=== PATIENT | female | born 1990 | race Caucasian/White ===

== ENCOUNTER 2018-10-19 05:01 | Inpatient (IN) | payer MEDICAID, OTHER ==
[~2018-10-19] VITALS: Ht 157.5 cm; Wt 56.7 kg
[2018-10-19] MEDS ORDERED: SODIUM CHLORIDE 0.9% 1,000 ML IV SCH ×2 (05:39→18:30)
[2018-10-19] MEDS ORDERED: FAMOTIDINE 20MG/2ML VIAL IV ONE (05:45)
[2018-10-19] MEDS ORDERED: DIPHENHYDRAMINE 50MG/ML VIAL IV ONE (05:45)
[2018-10-19] MEDS ORDERED: ONDANSETRON HCL 4MG/2ML INJ IV ONE (05:45)
[2018-10-19] MEDS ORDERED: DEXAMETHASONE 10 MG/ML VIAL IV ONE (05:45)
[2018-10-19 05:57] LABS: BASOPHILS % 0.1 % (0.0-2.0); EOSINOPHILS % 0.6 % (0.0-5.0); HEMATOCRIT. 48.2 % (36.0-48.0); HEMOGLOBIN. 16.2 g/dL (12.0-16.0); LYMPHOCYTES % 28.6 % (20.0-50.0); MEAN CORPUSCULAR HEMOGLOBIN 31.5 pg (28.0-32.0); MEAN CORPUSCULAR VOLUME 93.7 fL (81.0-99.0); MEAN PLATELET VOLUME 8.4 fl (7.4-10.4); NEUTROPHILS % 65.7 % (40.0-76.0); PLATELET 398 x1000/uL (130-400); RED BLOOD CELL COUNT 5.15 mill/uL (4.2-5.4); RED CELL DISTRIBUTION WIDTH 13.7 % (11.6-14.6)
[2018-10-19 06:12] LABS: CHLORIDE 106 mEq/L (98-107)
[2018-10-19] MEDS ORDERED: EPINEPHRINE 1:1000 1 MG/ML AMP INJ ONE (06:15)
[2018-10-19] MEDS ORDERED: EPINEPHRINE 1:1000 1 MG/ML AMP ONE (06:16)
[2018-10-19 07:31] LABS: HCG SCREEN NEGATIVE
[2018-10-19 08:00] VITALS: BP 92/56
[2018-10-19] MEDS ORDERED: SODIUM CHLORIDE 0.9% 1,000 ML IV ONE (08:21)
[2018-10-19] MEDS ORDERED: ACETAMINOPHEN 650MG SUPP PR PRN (08:30)
[2018-10-19] MEDS ORDERED: ONDANSETRON HCL 4MG/2ML INJ IV PRN (08:30)
[2018-10-19] MEDS ORDERED: CLONIDINE 0.1MG TABLET PO PRN (08:30)
[2018-10-19] MEDS ORDERED: IPRATROPIUM/ALBUTEROL 0.5-3(2.5)MG/3ML NEB INH PRN (08:30)
[2018-10-19] MEDS ORDERED: DOCUSATE SODIUM 100MG CAPSULE PO PRN (08:30)
[2018-10-19] MEDS ORDERED: GUAIFENESIN 200MG/10ML SUGAR FREE UDC PO PRN (08:30)
[2018-10-19] MEDS ORDERED: ACETAMINOPHEN 325MG TABLET PO PRN (08:30)
[2018-10-19] MEDS ORDERED: MAGNESIUM/ALUMINUM HYDROXIDE/SIMETHICONE 30ML UDC PO PRN (08:30)
[2018-10-19 09:00] VITALS: BP 92/50
[2018-10-19] MEDS: METHYLPREDNISOLONE SOD SUCC 125 MG/2 ML VIAL IV SCH ×3 (10:46→20:20)
[2018-10-19] MEDS: ENOXAPARIN 40MG/0.4ML SYR SUBCUT SCH (10:46)
[2018-10-19 12:00] VITALS: BP 106/48
[2018-10-19] MEDS: SODIUM CHLORIDE 0.9% INJ 3ML FLUSH IVF SCH ×2 (14:16→21:21)
[2018-10-19 16:00] VITALS: BP 92/56
[2018-10-19] MEDS: DIPHENHYDRAMINE 25MG CAPSULE PO SCH ×2 (17:51→23:31)
[2018-10-19 20:00] VITALS: BP 88/46
[2018-10-19] MEDS: SODIUM CHLORIDE 0.9% 1,000 ML IV SCH (20:00)
[2018-10-19] MEDS: FAMOTIDINE 20MG TABLET PO SCH (20:25)
[2018-10-19 20:55] LABS: CLARITY URINE CLOUDY (CLEAR); COLOR URINE YELLOW (YELLOW); KETONES URINE 1+ (NEGATIVE); LEUKOCYTE ESTERASE URINE NEGATIVE (NEGATIVE); NITRITE URINE POSITIVE (NEGATIVE); OCCULT BLOOD URINE 2+ (NEGATIVE); PH URINE 5.5 (4.5-8.0); PROTEIN URINE NEGATIVE (NEGATIVE); SPECIFIC GRAVITY URINE 1.024 (1.005-1.030); UROBILINOGEN URINE 0.2 E.U./dL (0.2-1.0)
[2018-10-19 21:10] LABS: *BARBITURATES SCREEN URINE NEGATIVE (NEGATIVE)
[2018-10-19 21:11] LABS: *BENZODIAZEPINES SCREEN URINE NEGATIVE (NEGATIVE); *COCAINE SCREEN URINE NEGATIVE (NEGATIVE); CANNABINOID URINE SCREEN NEGATIVE (NEGATIVE); OPIATES URINE SCREEN NEGATIVE (NEGATIVE); PHENCYCLIDINE URINE SCREEN NEGATIVE (NEGATIVE)
[2018-10-19 21:12] LABS: METHADONE URINE SCREEN NEGATIVE (NEGATIVE)
[2018-10-19 21:17] LABS: *AMPHETAMINES SCREEN URINE PRESUMTIVE POSITIVE (NEGATIVE)
[2018-10-20] VITALS (7 sets, daily range): BP systolic 90–109; BP diastolic 41–66
[2018-10-20] MEDS: METHYLPREDNISOLONE SOD SUCC 125 MG/2 ML VIAL IV SCH (03:13)
[2018-10-20] MEDS: DIPHENHYDRAMINE 25MG CAPSULE PO SCH ×3 (05:41→18:02)
[2018-10-20] MEDS: SODIUM CHLORIDE 0.9% INJ 3ML FLUSH IVF SCH ×3 (05:49→21:28)
[2018-10-20 07:12] LABS: HEMATOCRIT. 34.5 % (36.0-48.0); HEMOGLOBIN. 11.4 g/dL (12.0-16.0); MEAN CORPUSCULAR HEMOGLOBIN 31.1 pg (28.0-32.0); MEAN CORPUSCULAR VOLUME 94.1 fL (81.0-99.0); MEAN PLATELET VOLUME 9.4 fl (7.4-10.4); PLATELET 300 x1000/uL (130-400); RED BLOOD CELL COUNT 3.67 mill/uL (4.2-5.4); RED CELL DISTRIBUTION WIDTH 13.6 % (11.6-14.6)
[2018-10-20 07:23] LABS: CHLORIDE 111 mEq/L (98-107)
[2018-10-20 07:39] LABS: LDL CHOLESTEROL 62 mg/dL (5-100)
[2018-10-20 07:40] LABS: HDL CHOLESTEROL 49 mg/dL (40-59)
[2018-10-20] MEDS: ENOXAPARIN 40MG/0.4ML SYR SUBCUT SCH (08:45)
[2018-10-20] MEDS: FAMOTIDINE 20MG TABLET PO SCH ×2 (08:45→21:00)
[2018-10-20] MEDS: SODIUM CHLORIDE 0.9% 1,000 ML IV SCH ×2 (08:46→21:00)
[2018-10-20] MEDS ORDERED: METHYLPREDNISOLONE SOD SUCC 40 MG/ML VIAL IV SCH (09:00)
[2018-10-20 14:08] LABS: PLATELET ESTIMATE NORMAL
[2018-10-20] MEDS ORDERED: P50 MT (17:54)
[2018-10-20] MEDS ORDERED: LEVO500T2 MT (17:55)
[2018-10-20] MEDS ORDERED: LEVOFLOXACIN 500MG TABLET PO NR (18:00)
[2018-10-20 18:37] LABS: HEMATOCRIT. 33.4 % (36.0-48.0); HEMOGLOBIN. 11.1 g/dL (12.0-16.0); MEAN CORPUSCULAR HEMOGLOBIN 31.3 pg (28.0-32.0); MEAN CORPUSCULAR VOLUME 94.1 fL (81.0-99.0); MEAN PLATELET VOLUME 9.3 fl (7.4-10.4); PLATELET 278 x1000/uL (130-400); RED BLOOD CELL COUNT 3.54 mill/uL (4.2-5.4); RED CELL DISTRIBUTION WIDTH 13.6 % (11.6-14.6)
[2018-10-20 20:51] LABS: PLATELET ESTIMATE NORMAL
== END 2018-10-20 22:05 | disposition home or self-care (01) | DRG 811 ==
LOC: ER 05:01 → 6WST 06:36 → EDBEDREQTM 06:37 → EDBEDREQ 06:37 → ENRESERV 07:50
PROVIDERS: ADMIT Family Medicine; ATTEND Family Medicine
DX: T78.40XA Allergy, unspecified, initial encounter (principal); R65.10 Systemic inflammatory response syndrome (SIRS) of non-infectious origin without acute organ dysfunction; E86.0 Dehydration; L29.9 Pruritus, unspecified; R73.9 Hyperglycemia, unspecified; X58.XXXA Exposure to other specified factors, initial encounter
CPT/HCPCS: 36415; 71045; 80061; 80305; 84703; 96361; 96374; 96375; 99291; C1893; J1100; J1200; J1650; J2405; J2920; J2930; J3490; J7030; Q0163

== ENCOUNTER 2019-09-05 00:30 | Emergency (ER) | payer SELFPAY ==
[~2019-09-05] VITALS: Ht 154.9 cm; Wt 55.0 kg
[~2019-09-05 00:30] MED LIST: LEVO500T2 MT; P50 MT
[2019-09-05 03:00] VITALS: BP 114/68
== END 2019-09-05 04:32 | disposition home or self-care (01) ==
LOC: ER 00:30
DX: S00.83XA Contusion of other part of head, initial encounter (principal); R51 Headache; W22.8XXA Striking against or struck by other objects, initial encounter; Y93.89 Activity, other specified; Y92.9 Unspecified place or not applicable
CPT/HCPCS: 70486; 81025; 99284; Z7610

== ENCOUNTER 2020-08-23 14:18 | Emergency (ER) | payer SELFPAY ==
[~2020-08-23] VITALS: Ht 157.5 cm; Wt 48.8 kg
[2020-08-23 14:22] VITALS: BP 98/52
[2020-08-23] MEDS ORDERED: HYDROCODONE/ACETAMINOPHEN 5/325MG TABLET PO ONE (14:45)
[2020-08-23] MEDS ORDERED: LIDOCAINE HCL 1% 20ML VIAL (Pyxis) INJ INFIL ONE (14:45)
[2020-08-23] MEDS ORDERED: DIPHENHYDRAMINE 25MG CAPSULE PO ONE (14:45)
[2020-08-23] MEDS ORDERED: TETANUS, DIPHTHERIA, PERTUSSIS VAC/PF 0.5ML (>7YR OLD) IM ONE (14:45)
[2020-08-23] MEDS ORDERED: SODIUM CHLORIDE 0.9% 1,000 ML IV ONE (15:15)
[2020-08-23] MEDS ORDERED: DIPHENHYDRAMINE 50MG/ML VIAL IV ONE (15:15)
[2020-08-23] MEDS ORDERED: METHYLPREDNISOLONE SOD SUCC 125 MG/2 ML VIAL IV ONE (15:15)
== END 2020-08-23 16:35 | disposition home or self-care (01) ==
LOC: ER 14:21
DX: T78.49XA Other allergy, initial encounter (principal); X58.XXXA Exposure to other specified factors, initial encounter
CPT/HCPCS: 96361; 96374; 96375; 99284; J1200; J2930; J7030

== ENCOUNTER 2023-11-07 02:55 | Emergency (ER) | payer SELFPAY ==
[~2023-11-07] VITALS: Ht 154.9 cm; Wt 48.4 kg
[2023-11-07 03:41] VITALS: BP 131/81; PULSE 104; RESP 16; TEMP 98.6; O2SAT 100
== END 2023-11-07 08:09 | disposition left against medical advice (07) ==
LOC: ER 02:55
DX: A05.9 Bacterial foodborne intoxication, unspecified (principal); Z53.21 Procedure and treatment not carried out due to patient leaving prior to being seen by health care provider
CPT/HCPCS: 99281